=== PATIENT | male | born 1980 | race African-American/Black ===

== ENCOUNTER 2017-05-06 17:37 | Emergency (ER) | payer MEDICARE, MEDICAID ==
[2017-05-06] MEDS ORDERED: LIDOCAINE 1% INJ-PF (10 MG/ML) 30 ML SDV INJ ONE (18:19)
[2017-05-06] MEDS ORDERED: SULFAMETHOXAZOLE/TRIMETHOPRIM 800-160 MG TABLET PO ONE (18:19)
[2017-05-06] MEDS ORDERED: IBUPROFEN 600 MG TABLET PO ONE (18:19)
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
--- NOTE | 2017-05-06 18:52 | RADIOLOGY REPORT (SQ) ---
EXAM DESCRIPTION: FOOT RIGHT COMPLETE COMPLETED DATE/TIME: 05/06/2017 6:34 pm REASON FOR STUDY: foot pain COMPARISON: None. NUMBER OF VIEWS: Three views. TECHNIQUE: AP, lateral and oblique radiographic images acquired of the right foot. LIMITATIONS: None. FINDINGS: MINERALIZATION: Normal. BONES: No acute fracture or dislocation. No worrisome bone lesions. JOINTS: No effusions. SOFT TISSUES: Mild forefoot soft tissue swelling. No foreign body. OTHER: No other significant finding. IMPRESSION: Mild forefoot soft tissue swelling. No acute fracture. No radiopaque foreign body. No soft tissue gas TECHNICAL DOCUMENTATION: JOB ID: [id number] [employer]- All Rights Reserved
[2017-05-06 19:28] VITALS: BP 122/72
== END 2017-05-06 19:30 | disposition home or self-care (01) ==
LOC: ER 17:37
PROC: 0H9MXZZ Drainage of Right Foot Skin, External Approach (ICD-10-PCS; principal; 2017-05-06)
DX: L84 Corns and callosities (principal); M79.671 Pain in right foot; M79.89 Other specified soft tissue disorders
CPT/HCPCS: 99283; 73630; 10060; A9270 ×2; J3490

== ENCOUNTER 2018-03-22 23:08 | Emergency (ER) | payer MEDICARE, MEDICAID ==
[2018-03-22] MEDS ORDERED: DIPH/PERTUSS(ACELL)/TETANUS VAC/PF 0.5 ML SYR (>=10YO) IM ONE (23:58)
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
[2018-03-23 04:42] VITALS: BP 110/60
[2018-03-23] MEDS ORDERED: ONDANSETRON HCL INJ/PF 4 MG/2 ML SDV IV ONE (04:50)
[2018-03-23] MEDS ORDERED: ONDANSETRON 4 MG TAB.RAPDIS PO ONE (04:57)
[2018-03-23] MEDS ORDERED: ACETAMINOPHEN 325 MG TABLET PO ONE (05:01)
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
[2018-03-23] MEDS ORDERED: ONDANSETRON ODT 4 MG TAB (6 TAB/ER DISP) PO PRN (05:32)
[2018-03-23] MEDS ORDERED: HYDROCODONE/ACETAMINOPHEN 5-325 MG (6 TAB/ER DISP) PO PRN (05:32)
== END 2018-03-23 05:48 | disposition home or self-care (01) ==
LOC: ER 23:08
PROC: 0HQ1XZZ Repair Face Skin, External Approach (ICD-10-PCS; principal; 2018-03-22)
DX: S06.0X1A Concussion with loss of consciousness of 30 minutes or less, initial encounter (principal); R51 Headache; R11.0 Nausea; Y08.89XA Assault by other specified means, initial encounter; F17.200 Nicotine dependence, unspecified, uncomplicated
CPT/HCPCS: 99284; 90471; 73090; 73130; 70450 ×2; 72125; 90715; 12011; A9270 ×4; S0119

== ENCOUNTER 2018-05-10 14:57 | Emergency (ER) | payer MEDICARE, MEDICAID ==
[2018-05-10 15:32] VITALS: BP 124/72
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
[2018-05-10 18:05] LABS: ABSOLUTE BASOPHILS # (AUTO) 0.1 10^3/uL (0.0-0.2); ABSOLUTE EOSINOPHILS # (AUTO) 0.2 10^3/uL (0.0-0.6); ABSOLUTE LYMPHOCYTES (AUTO) 2.1 10^3/uL (0.5-4.7); ABSOLUTE NEUT (AUTO) 4.1 10^3/uL (1.7-8.2); BASOPHILS % (AUTO) 0.9 % (0-2); EOSINOPHILS % (AUTO) 2.3 % (0-6); HEMATOCRIT 47.9 % (37.9-51.0); HEMOGLOBIN 16.5 g/dL (13.5-17.0); LYMPHOCYTES % (AUTO) 28.9 % (13-45); MEAN CORPUSCULAR HEMOGLOBIN 32.8 pg (27.0-33.4); MEAN CORPUSCULAR HGB CONC 34.5 g/dL (32.0-36.0); MEAN CORPUSCULAR VOLUME 95 fl (80-97); MONOCYTES % (AUTO) 12.9 % (3-13); PLATELET COUNT 238 10^3/uL (150-450); RED BLOOD COUNT 5.05 10^6/uL (4.35-5.55); RED CELL DISTRIBUTION WIDTH 13.3 % (11.5-14.0); TOTAL CELLS COUNTED % (AUTO) 100 %; WHITE BLOOD COUNT 7.4 10^3/uL (4.0-10.5)
[2018-05-10 18:26] LABS: ALANINE AMINOTRANSFERASE 96 U/L (21-72); ALBUMIN 4.2 g/dL (3.5-5.0); ALKALINE PHOSPHATASE 77 U/L (38-126); ANION GAP 7 (5-19); ASPARTATE AMINO TRANSFERASE 49 U/L (17-59); BILIRUBIN,DIRECT 0.3 mg/dL (0.0-0.4); BILIRUBIN,TOTAL 0.4 mg/dL (0.2-1.3); BLOOD UREA NITROGEN 11 mg/dL (7-20); CALCIUM 9.5 mg/dL (8.4-10.2); CARBON DIOXIDE 31 mmol/L (22-30); CHLORIDE 108 mmol/L (98-107); GLUCOSE 136 mg/dL (75-110); POTASSIUM 4.5 mmol/L (3.6-5.0); SODIUM 145.7 mmol/L (137-145); TOTAL PROTEIN 7.6 g/dL (6.3-8.2)
--- NOTE | 2018-05-10 18:31 | RADIOLOGY REPORT (SQ) ---
EXAM DESCRIPTION: CHEST 2 VIEWS COMPLETED DATE/TIME: 05/10/2018 6:12 pm REASON FOR STUDY: cough x 2 weeks COMPARISON: 02/13/2011 EXAM PARAMETERS: NUMBER OF VIEWS: two views TECHNIQUE: Digital Frontal and Lateral radiographic views of the chest acquired. RADIATION DOSE: NA LIMITATIONS: none FINDINGS: LUNGS AND PLEURA: No opacities, masses or pneumothorax. No pleural effusion. MEDIASTINUM AND HILAR STRUCTURES: No masses or contour abnormalities. HEART AND VASCULAR STRUCTURES: Heart normal size. No evidence for failure. BONES: No acute findings. HARDWARE: None in the chest. OTHER: No other significant finding. IMPRESSION: NO ACUTE RADIOGRAPHIC FINDING IN THE CHEST. TECHNICAL DOCUMENTATION: JOB ID: [id number] [employer]- All Rights Reserved Reading location - IP/workstation name: [email or web address]
--- NOTE | 2018-05-10 18:46 | RADIOLOGY REPORT (SQ) ---
EXAM DESCRIPTION: CT HEAD WITHOUT COMPLETED DATE/TIME: 05/10/2018 6:35 pm REASON FOR STUDY: pain COMPARISON: 03/23/2018 TECHNIQUE: Axial images acquired through the brain without intravenous contrast. Images reviewed wi th bone, brain and subdural windows. Additional sagittal and coronal reconstructions were generated. Images stored on PACS. All CT scanners at this facility use dose modulation, iterative reconstruction, and/or weight based d osing when appropriate to reduce radiation dose to as low as reasonably achievable (ALARA). [facility]: Dose Right [facility]: CareDose [facility]: Dose Right [facility]: Teradose 4D [facility]: [employer] RADIATION DOSE: CT Rad equipment meets quality standard of care and radiation dose reduction techniq ues were employed. CTDIvol: 53.2 mGy. DLP: 1017 mGy-cm. mGy. LIMITATIONS: None. FINDINGS: VENTRICLES: Normal size and contour. CEREBRUM: No masses. No hemorrhage. No midline shift. No evidence for acute infarction. Normal gra y/white matter differentiation. No areas of low density in the white matter. CEREBELLUM: No masses. No hemorrhage. No alteration of density. No evidence for acute infarction. EXTRAAXIAL SPACES: No fluid collections. No masses. ORBITS AND GLOBE: No intra- or extraconal masses. Normal contour of globe without masses. CALVARIUM: No fracture. PARANASAL SINUSES: There is an air-fluid level in the right maxillary sinus. Some of the right ethmo id air cells are opacified. There is considerable opacification in the frontal sinuses. SOFT TISSUES: No mass or hematoma. OTHER: No other significant finding. IMPRESSION: Sinus disease. No acute intracranial imaging findings. EVIDENCE OF ACUTE STROKE: NO. COMMENT: Quality ID # 436: Final reports with documentation of one or more dose reduction techniques (e.g., Automated exposure control, adjustment of the mA and/or kV according to patient size, use of iterative reconstruction technique) TECHNICAL DOCUMENTATION: JOB ID: [id number] [employer]- All Rights Reserved Reading location - IP/workstation name: [email or web address]
--- NOTE | 2018-05-10 18:54 | RADIOLOGY REPORT (SQ) ---
EXAM DESCRIPTION: CT CERVICAL SPINE WITHOUT COMPLETED DATE/TIME: 05/10/2018 6:35 pm REASON FOR STUDY: pain COMPARISON: 03/23/2018 TECHNIQUE: Axial images acquired through the cervical spine without intravenous contrast. Images re viewed with lung, soft tissue and bone windows. Reconstructed coronal and sagittal MPR images review ed. Images stored on PACS. All CT scanners at this facility use dose modulation, iterative reconstruction, and/or weight based d osing when appropriate to reduce radiation dose to as low as reasonably achievable (ALARA). [facility]: Dose Right [facility]: CareDose [facility]: Dose Right [facility]: Teradose 4D [facility]: [employer] RADIATION DOSE: CT Rad equipment meets quality standard of care and radiation dose reduction techniq ues were employed. CTDIvol: 24.5 mGy. DLP: 512 mGy-cm. mGy. LIMITATIONS: None. FINDINGS: ALIGNMENT: Anatomic. MINERALIZATION: Normal. VERTEBRAL BODIES: No fractures or dislocation. DISCS: There is narrowing of the C6-7 disc space with marginal osteophytes. FACETS, LATERAL MASSES, POSTERIOR ELEMENTS: No fractures. No dislocation. No acute findings. HARDWARE: None in the spine. VISUALIZED RIBS: No fractures. LUNG APICES AND SOFT TISSUES: No significant or acute findings. OTHER: No other significant finding. IMPRESSION: Degenerative disc disease and spondylosis at C6-7. No acute finding. TECHNICAL DOCUMENTATION: JOB ID: [id number] Quality ID # [id number]: Final reports with documentation of one or more dose reduction techniques (e.g., Au tomated exposure control, adjustment of the mA and/or kV according to patient size, use of iterative reconstruction technique) 2010 [email or web address]- All Rights Reserved Reading location - IP/workstation name: [email or web address]
[2018-05-10] MEDS ORDERED: DEXAMETHASONE 4 MG TABLET PO ONE (19:17)
[2018-05-10] MEDS ORDERED: ALBUTEROL SULFATE HFA (90 MCG/PUFF) 200 PUFF/8.5 GM MDI IH ONE (19:18)
--- NOTE | 2018-05-10 19:20 | ER Document Report ---
ED General - General Chief Complaint: Fainting Stated Complaint: FALL/FLU LIKE SYMPTOMS Time Seen by Provider: 05/10/18 17:29 Primary Care Provider: RADHA ELI MD [Primary Care Provider] - Follow up as needed Notes: Patient is a 37-year-old male with a past medical history of PTSD, anxiety, presents after having a syncopal episode that occurred after an episode of vigorous coughing. The patient reports that for the past 2 weeks he has had a persistent, daily cough. States that sometimes he coughs so forcefully that he feels nauseated or lightheaded. Tonight he had an episode lasting was 1 minute in which he coughed very forcefully, states he then became lightheaded and apparently passed out. He apparently fell and struck his head and neck. Upon waking up after 30 seconds of unconsciousness he apparently complained of a throbbing aching bifrontal headache. States that headaches mostly resolved at the time of my assessment. Denies a history of previous syncopal episodes in the past. Does arrive by EMS. Notes that his symptoms have improved independent of any therapy. Nothing has worsened his symptoms since onset. TRAVEL OUTSIDE OF THE [place] IN LAST 30 DAYS: No - Related Data Allergies/Adverse Reactions: No Known Allergies Allergy (Verified 05/10/18 15:00) Past Medical History - General Information source: Patient - Social History Smoking Status: Current Every Day Smoker Frequency of alcohol use: None Drug Abuse: None Lives with: Family Family History: None, Reviewed & Not Pertinent Patient has suicidal ideation: No Patient has homicidal ideation: No Neurological Medical History: Reports: Hx Seizures Renal/ Medical History: Denies: Hx Peritoneal Dialysis Musculoskeletal Medical History: Reports Hx Musculoskeletal Trauma Psychiatric Medical History: Reports: Hx Bipolar Disorder, Hx Depression Traumatic Medical History: Reports: Hx Traumatic Brain Injury Past Surgical History: Reports: Hx Orthopedic Surgery - back - Immunizations Hx Diphtheria, Pertussis, Tetanus Vaccination: Yes Review of Systems - Review of Systems Notes: Constitutional: Negative for fever. HENT: Negative for sore throat. Eyes: Negative for visual changes. Cardiovascular: Negative for chest pain. Respiratory: Positive for cough Gastrointestinal: Negative for abdominal pain, vomiting or diarrhea. Genitourinary: Negative for dysuria. Musculoskeletal: Negative for back pain. Skin: Negative for rash. Neurological: Positive for headache 10 point ROS negative except as marked above and in HPI. Physical Exam - Vital signs Vitals: Temp Pulse Resp BP Pulse Ox 98.5 F 107 H 20 124/72 93 05/10/18 15:30 05/10/18 15:30 05/10/18 15:30 05/10/18 15:30 05/10/18 15:30 Interpretation: Tachycardic - Heart rate is normalized at the time of my assessment with a heart rate of 82 Notes: PHYSICAL EXAMINATION: GENERAL: Well-appearing, no acute distress. HEAD: Atraumatic, normocephalic. EYES: Pupils equal round and reactive to light, extraocular movements intact, sclera anicteric, conjunctiva are normal. ENT: nares patent, no oral pharyngeal trauma. No hemotympanum, no Ott's sign, no raccoon eyes. NECK: No midline cervical spine tenderness. Patient able to move their head to 45 bilaterally without any discomfort. LUNGS: Breath sounds clear to auscultation bilaterally and equal. No wheezes rales or rhonchi. HEART: Regular rate and rhythm without murmurs. CHEST WALL: No ecchymosis over the chest wall. ABDOMEN: Soft, nontender, normoactive bowel sounds. No guarding, no rebound. No abdominal bruising EXTREMITIES: Normal range of motion, no pitting or edema. No long bone deformities. BACK: No midline spinal tenderness, step-offs, or deformities. NEUROLOGICAL: Face symmetric. Tongue protrudes midline. Extraocular motions intact. Pupils are 2 mm and equally reactive. Normal speech, normal gait. 5 out of 5 strength in both the distal and proximal upper and lower extremities bilaterally. Sensation is grossly intact throughout. Finger to nose testing normal. Pronator drift normal. PSYCH: Normal mood, normal affect. SKIN: Warm, Dry, normal turgor, no rashes or lesions noted. Course - Re-evaluation Re-evalutation: 05/10/18 19:19 Presentation of syncope likely vasovagal in origin after the patient had a persistent coughing fit. Patient normotensive, alert, without focal neurologic deficits at time of arrival. Denies syncope was during exertion. No preceding symptoms of palpitations, chest pain, or shortness of breath. Patient asymptomatic at time of arrival. EKG is without evidence of HCOM, right heart strain, ST changes to suggest ischemia, prolong QTc, delta wave, epsilon wave, or Brugada syndrome. Patient denies any family history of sudden cardiac , personal history of of structural heart disease. Patient denies any symptoms to suggest an acute PE, MD, TAD, SAH, seizure, or acute GI bleed as the etiology of their syncope today. On exam, no murmurs to suggest critical aortic stenosis as possible etiology. Patient did strike his head and neck during the episode and a CT of the head and cervical spine were obtained in triage and are noted to be unremarkable. In regards to the patient's persistent cough: clinical history and exam most consistent with an acute viral bronchitis. Patient is overall well in appearance without tachypnea, hypoxemia, tachycardia, or difficulty with ambulation. Breath sounds are clear bilaterally. No fever. Patient does have additional signs of upper respiratory infection including nasal congestion, sore throat, and sinus pressure. Chest x-ray without any evidence of an acute infiltrate. Will treat with bronchodilators, single dose of dexamethasone, and Tessalon Perles. At this time will discharge with return precautions and follow-up recommendations. Verbal discharge instructions given a the bedside and opportunity for questions given. Medication warnings reviewed. Patient is in agreement with this plan and has verbalized understanding of return precautions and the need for primary care follow-up in the next 24-72 hours. - Vital Signs Vital signs: Temp Pulse Resp BP Pulse Ox 98.5 F 107 H 20 124/72 93 05/10/18 15:30 05/10/18 15:30 05/10/18 15:30 05/10/18 15:30 05/10/18 15:30 - Laboratory Result Diagrams: 05/10/18 17:51 05/10/18 17:51 Laboratory results interpreted by me: 05/10/18 17:51 Sodium 145.7 H Chloride 108 H Carbon Dioxide 31 H Glucose 136 H ALT 96 H - Diagnostic Test Radiology reviewed: Image reviewed, Reports reviewed Radiology results interpreted by nj: 05/10/18 19:20 Chest x-ray: No acute infiltrate or pneumothorax CT head: No acute intercranial bleed or mass Discharge - Discharge Clinical Impression: Persistent cough Syncope Qualifiers: Syncope type: unspecified Qualified Code(s): R55 - Syncope and collapse Head trauma Qualifiers: Encounter type: initial encounter Qualified Code(s): S09.90XA - Unspecified injury of head, initial encounter Acute bronchitis Qualifiers: Bronchitis organism: unspecified organism Qualified Code(s): J20.9 - Acute bronchitis, unspecified Condition: Good Disposition: HOME, SELF-CARE Additional Instructions: You were seen for symptoms most consistent with bronchitis. This can take up to 12 weeks to fully resolve. This is generally due to a viral infection. Please follow-up with your primary doctor in the next 2-3 days. Return if you develop worsening cough, vomiting, fever >100.4, pass out, begin coughing blood, or have any other symptoms that are concerning to you. Please use the medications prescribed today as directed. You were seen today after an episode of passing out. Your EKG here is normal. At this time, we do not feel that your episode of passing out was from any life- threatening cause. Please drink plenty of fluids over the next several days. Return to emergency department if you have any further episodes of syncope, headache, weakness, numbness, chest pain, or shortness of breath. Please follow up closely with your primary care physician. You have likely sustained a contusion (bruise) to your head. If you had a CT scan done, it did not show any evidence of serious injury or bleeding. Symptoms to expect from a concussion include nausea, mild to moderate headache, difficulty concentrating or sleeping, and mild lightheadedness. These symptoms should improve over the next few days to weeks. Return to the emergency department or follow-up with your primary care doctor if your symptoms are not improving over this time. Signs of a more serious head injury include vomiting, severe headache, excessive sleepiness or confusion, and weakness or numbness in your face, arms or legs. Return immediately to the Emergency Department if you experience any of these more concerning symptoms. Rest, avoid strenuous physical or mental activity, and avoid activities that could potentially result in another head injury until all your symptoms from this head injury are completely resolved for at least 2-3 weeks. If you participate in sports, get cleared by your doctor or regional sales trainer before returning to play. You may take ibuprofen or acetaminophen over the counter according to label instructions for mild headache or scalp soreness. Prescriptions: Benzonatate [Tessalon Perles 100 mg Capsule] 100 mg PO Q8HP PRN #40 capsule PRN Reason: Referrals: RADHA ELI MD [Primary Care Provider] - Follow up as needed
--- NOTE | 2018-05-10 22:57 | EKG REPORT ---
SEVERITY:- NORMAL ECG - SINUS RHYTHM : Confirmed by: Elva Childs MD 10-May-2018 22:57:18
== END 2018-05-10 20:02 | disposition home or self-care (01) ==
LOC: ER 14:57
DX: R55 Syncope and collapse (principal); S09.90XA Unspecified injury of head, initial encounter; J20.9 Acute bronchitis, unspecified; X58.XXXA Exposure to other specified factors, initial encounter; F43.10 Post-traumatic stress disorder, unspecified; F41.9 Anxiety disorder, unspecified; F17.200 Nicotine dependence, unspecified, uncomplicated
CPT/HCPCS: 93005; 99284; 36415; 85025; 80053; 84484; 71046; 70450; 72125; 93010; A9270; J3490

== ENCOUNTER 2018-08-21 19:41 | Observation (INO) | payer MEDICARE, MEDICAID ==
[2018-08-21] MEDS ORDERED: ONDANSETRON HCL INJ/PF 4 MG/2 ML SDV IV ONE (23:09)
[2018-08-21] MEDS ORDERED: MORPHINE SULFATE 10 MG/ML INJ IV ONE (23:09)
--- NOTE | 2018-08-21 23:11 | ER Document Report ---
ED Extremity Problem, Upper - General Chief Complaint: Arm Problem Stated Complaint: SPIDER BITE Time Seen by Provider: 08/21/18 22:45 Notes: Patient is a 37-year-old male that comes emergency department for chief complaint of left arm pain and swelling. He states last night he could not sleep because of the pain, he states today it "busted open", large amount of purulent drainage came out of the opening at the base of the bicep in the curve of the elbow. He states earlier he felt like he was running a fever and was sweating as well. He denies ever using IV drugs or any recreational drugs except marijuana, he reports his tetanus is up-to-date, he denies any medical history except chronic back pain on gabapentin. TRAVEL OUTSIDE OF THE [place] IN LAST 30 DAYS: No - Related Data Allergies/Adverse Reactions: No Known Allergies Allergy (Verified 05/10/18 15:00) Past Medical History - General Information source: Patient - Social History Smoking Status: Never Smoker Frequency of alcohol use: None Drug Abuse: None Lives with: Family Family History: None, Reviewed & Not Pertinent Neurological Medical History: Reports: Hx Seizures Renal/ Medical History: Denies: Hx Peritoneal Dialysis Musculoskeletal Medical History: Reports Hx Musculoskeletal Trauma Psychiatric Medical History: Reports: Hx Bipolar Disorder, Hx Depression Traumatic Medical History: Reports: Hx Traumatic Brain Injury Past Surgical History: Reports: Hx Orthopedic Surgery - back - Immunizations Hx Diphtheria, Pertussis, Tetanus Vaccination: Yes Review of Systems - Review of Systems Constitutional: No symptoms reported EENT: No symptoms reported Cardiovascular: No symptoms reported Respiratory: No symptoms reported Gastrointestinal: No symptoms reported Genitourinary: No symptoms reported Male Genitourinary: No symptoms reported Musculoskeletal: See HPI Skin: See HPI Hematologic/Lymphatic: No symptoms reported Neurological/Psychological: No symptoms reported Physical Exam - Vital signs Vitals: Temp Pulse Resp BP Pulse Ox 99.0 F 85 18 137/73 H 97 08/21/18 20:15 08/21/18 20:15 08/21/18 20:15 08/21/18 20:15 08/21/18 20:15 - Notes Notes: GENERAL: Alert, interacts well. HEAD: Normocephalic, atraumatic. EYES: Pupils equal, round, and reactive to light. Extraocular movements intact. ENT: Oral mucosa moist, tongue midline. Oropharynx unremarkable. Airway patent. NECK: Full range of motion. Supple. Trachea midline. LUNGS: Clear to auscultation bilaterally, no wheezes, rales, or rhonchi. No respiratory distress. HEART: Regular rate and rhythm. No murmur ABDOMEN: Soft, non-tender. Non-distended. Bowel sounds present in all 4 quadrants. GENITOURINARY: Deferred EXTREMITIES: Left upper extremity showing swelling at the bicep with redness and tenderness, tenderness extends down to the base of the bicep near the antecubital area, at this area there is a large hole in the arm with current purulent drainage being expressed. Patient cannot extend his arm at the elbow. There is no tenderness over the elbow or swelling of the elbow. Normal distal strength, cap refill, sensation. Normal extremity exams otherwise. BACK: no cervical, thoracic, lumbar midline tenderness. No saddle anesthesia, normal distal neurovascular exam. NEUROLOGICAL: Alert and oriented x3. Normal speech. PSYCH: Normal affect, normal mood. SKIN: Warm, dry, normal turgor. No rashes or lesions noted. Course - Re-evaluation Re-evalutation: Patient's physical examination is very concerning and impressive. If there is a large swollen area to the left bicep with surrounding redness, this extends down to a large deep opening at the base of the bicep which is draining copious amounts of purulent material. Every time patient tries to move his arm more material is expressed. Patient cannot fully extend his arm because of this. The elbow joint itself seems to be uninvolved. Patient does deny IV drug abuse. He does not have a fever here but he states he had a fever with sweating earlie r today. No leukocytosis, chemistry unremarkable, CAT scan very limited and does not show obvious abnormality. However despite this because of his very concerning presentation patient will be discussed with surgeon online activist. 08/22/18 02:[address] Molina, general surgeon, he states he recommends patient be accepted to his service for probable OR washout later today. I discussed this with patient, patient states understanding and agreement with this plan. - Vital Signs Vital signs: Temp Pulse Resp BP Pulse Ox 97.8 F 69 18 101/64 97 08/22/18 03:01 08/22/18 03:01 08/22/18 03:01 08/22/18 03:01 08/22/18 03:01 - Laboratory Result Diagrams: 08/22/18 00:20 08/22/18 00:20 Laboratory results interpreted by me: 08/22/18 08/22/18 00:20 00:20 Monocytes % 13.2 H Chloride 108 H BUN 22 H Discharge - Discharge Clinical Impression: Left arm swelling, Arm abscess Condition: Stable Disposition: ADMITTED OBSERVATION Admitting Provider: Surgicalist Unit Admitted: Surgical Floor
[2018-08-22 00:34] LABS: ABSOLUTE BASOPHILS # (AUTO) 0.1 10^3/uL (0.0-0.2); ABSOLUTE EOSINOPHILS # (AUTO) 0.1 10^3/uL (0.0-0.6); ABSOLUTE LYMPHOCYTES (AUTO) 1.6 10^3/uL (0.5-4.7); ABSOLUTE MONOCYTES (AUTO) 1.1 10^3/uL (0.1-1.4); ABSOLUTE NEUT (AUTO) 5.3 10^3/uL (1.7-8.2); BASOPHILS % (AUTO) 0.7 % (0-2); EOSINOPHILS % (AUTO) 1.1 % (0-6); HEMATOCRIT 45.1 % (37.9-51.0); HEMOGLOBIN 15.4 g/dL (13.5-17.0); LYMPHOCYTES % (AUTO) 19.8 % (13-45); MEAN CORPUSCULAR HEMOGLOBIN 31.9 pg (27.0-33.4); MEAN CORPUSCULAR HGB CONC 34.2 g/dL (32.0-36.0); MEAN CORPUSCULAR VOLUME 93 fl (80-97); MONOCYTES % (AUTO) 13.2 % (3-13); PLATELET COUNT 233 10^3/uL (150-450); RED BLOOD COUNT 4.83 10^6/uL (4.35-5.55); RED CELL DISTRIBUTION WIDTH 12.8 % (11.5-14.0); SEGMENTED NEUTROPHILS % (AUTO) 65.2 % (42-78); TOTAL CELLS COUNTED % (AUTO) 100 %; WHITE BLOOD COUNT 8.1 10^3/uL (4.0-10.5)
[2018-08-22 00:53] LABS: ANION GAP 13 (5-19); BLOOD UREA NITROGEN 22 mg/dL (7-20); CALCIUM 9.5 mg/dL (8.4-10.2); CARBON DIOXIDE 24 mmol/L (22-30); CHLORIDE 108 mmol/L (98-107); GLUCOSE 91 mg/dL (75-110); POTASSIUM 4.4 mmol/L (3.6-5.0); SODIUM 144.9 mmol/L (137-145)
--- NOTE | 2018-08-22 01:30 | RADIOLOGY REPORT (SQ) ---
EXAM DESCRIPTION: CT UPPER EXTREMITY WITH IV CONTRAST COMPLETED DATE/TME: 08/22/2018 00:00 CLINICAL HISTORY: Pain. 37 years Male, swollen left arm, eval infection L ELBOW COMPARISON: None. Technique: IV contrast. Coronal and sagittal reformat. This exam was performed according to our departmental dose-optimization program, which includes automated exposure control, adjustment of the mA and/or kV according to patient size and/or use of iterative reconstruction technique. [facility]: Dose Right [facility]: CareDose [facility]: Dose Right [facility]: Teradose 4D [facility]: [employer] LIMITATIONS: Soft tissues at the posterior lateral aspect of the left elbow are clipped off imaging field. Streak artifact. Findings: Soft tissues at the posterior lateral aspect of the left elbow are clipped off imaging field. Streak artifact. Bones, joints, and soft tissues of the CT LEFT elbow WITH IV CONTRAST appear otherwise unremarkable. IMPRESSION: No acute findings. Significant limitations as described. Consider repeat or surveillance examination as warranted.
[2018-08-22] MEDS ORDERED: VANCOMYCIN HCL INJ 1000 MG VIAL IV ONE (01:50)
[2018-08-22] MEDS ORDERED: CEFTRIAXONE 1 GM/D5W RTU 1 GM/50 ML RTUPB IV ONE (01:51)
[2018-08-22] MEDS ORDERED: MORPHINE SULFATE 10 MG/ML INJ IV PRN ×3 (02:12→12:00)
[2018-08-22] MEDS ORDERED: ONDANSETRON HCL INJ/PF 4 MG/2 ML SDV IV PRN (02:12)
[2018-08-22] MEDS ORDERED: DEXTROSE 5%-LACTATED RINGERS 1,000 ML IV PRN (02:12)
[2018-08-22] MEDS ORDERED: VANCOMYCIN HCL 0 MG in DEXTROSE 5%-WATER 250 ML IV NR (02:15)
[2018-08-22] MEDS ORDERED: VANCOMYCIN HCL INJ 1000 MG VIAL IV PRN (02:22)
[2018-08-22] MEDS ORDERED: PIPERACILLIN/TAZOBACTAM 3.375 GM VIAL IV PRN (02:22)
[2018-08-22] MEDS: PIPERACILLIN SODIUM/TAZOBACTAM 3.375 GM in NORMAL SALINE 100 ML IV SCH ×4 (02:52→20:16)
[2018-08-22] MEDS ORDERED: VANCOMYCIN HCL 2,000 MG in DEXTROSE 5%-WATER 500 ML IV ONE (04:00)
[2018-08-22 06:21] LABS: URINE AMPHETAMINES SCREEN NEGATIVE; URINE BARBITURATES SCREEN NEGATIVE; URINE BENZODIAZEPINES SCREEN NEGATIVE; URINE COCAINE SCREEN NEGATIVE; URINE METHADONE SCREEN NEGATIVE; URINE PHENCYCLIDINE SCREEN NEGATIVE
[2018-08-22 06:27] LABS: URINE MARIJUANA (THC) SCREEN UNCONFIRMED POSITIVE
--- NOTE | 2018-08-22 07:22 | PDOC H&P ---
History of Present Illness Admission Date/PCP: 08/22/18 02:13 RADHA ELI MD Patient complains of: Left upper extremity swelling, pain, and drainage. History of Present Illness: MARCO CHRISTENSEN is a 37 year old male with a 4-day history of swelling in the left lower biceps. He reports that the skin broke open and pus began draining from it. The patient denies any history of trauma or IV drug abuse. The patient has experienced fevers and chills, as well as malaise. Patient's pain is a 6 out of 10. It is dull and throbbing. It does not radiate. Palpation makes his pain worse, nothing makes it better. Patient denies chest pain, shortness of breath, nausea, vomiting, headache, dizziness, blurry vision, orthostasis, fatigue. Past Medical History Neurological Medical History: Reports: Seizures Psychiatric Medical History: Reports: Bipolar Disorder, Depression Traumatic Medical History: Reports: Traumatic Brain Injury Past Surgical History Past Surgical History: Reports: Orthopedic Surgery - back Social History Lives with: Family Smoking Status: Current Every Day Smoker Cigarettes Packs Per Day: 1 Frequency of Alcohol Use: Occasional Drugs: Marijuana Family History Family History: None, Reviewed & Not Pertinent Parental Family History Reviewed: Yes Children Family History Reviewed: Yes Sibling(s) Family History Reviewed.: Yes Medication/Allergy Home Medications: Bupropion HCl [Wellbutrin Sr 150 mg Tablet] 150 mg PO BID 11/29/11 Cyclobenzaprine HCl [Flexeril 10 Mg Tablet] 10 mg PO BID 11/29/11 Furosemide [Lasix 20 mg Tablet] 20 mg PO QAM 11/29/11 Dicyclomine HCl [Bentyl 20 mg Tablet] 20 mg PO QID #40 tablet 05/14/12 Ondansetron [Zofran Odt 4 mg Tablet] 1 - 2 tab PO Q4H #10 tab.rapdis 05/14/12 Cyclobenzaprine HCl [Flexeril 10 mg Tablet] 10 mg PO TIDP PRN #15 tab 07/15/14 Oxycodone HCl/Acetaminophen [Percocet 5-325 mg Tablet] 1 - 2 tab PO Q4H PRN #15 tablet 07/15/14 Methocarbamol [Robaxin 500 mg Tablet] 500 mg PO TID #20 tablet 08/09/14 Tramadol HCl [Ultram] 50 mg PO ASDIR PRN #20 tablet 08/09/14 Hydrocodone/Acetaminophen [Lorcet Hd 10-325 mg Tablet] 1 each PO Q4 PRN #20 tablet 01/06/15 Albuterol Sulfate [Proair HFA Inhalation Aerosol 8.5 gm MDI] 2 puff IH Q4H PRN #1 mdi 01/09/15 Metaxalone [Skelaxin] 800 mg PO ASDIR PRN #30 tablet 01/09/15 Oxycodone HCl/Acetaminophen [Percocet 10-325 Mg Tablet] 1 each PO Q6 #25 tablet 01/09/15 Sulfamethoxazole/Trimethoprim [Bactrim Ds Tablet] 1 each PO BID #10 tablet 05/06/17 Tramadol HCl [Ultram 50 mg Tablet] 50 mg PO Q6HP PRN #10 tablet 05/06/17 Benzonatate [Tessalon Perles 100 mg Capsule] 100 mg PO Q8HP PRN #40 capsule 05/10/18 Allergies/Adverse Reactions: No Known Allergies Allergy (Verified 05/10/18 15:00) Review of Systems Constitutional: PRESENT: chills, fatigue, fever(s). ABSENT: anorexia, headache(s), weakness Eyes: ABSENT: visual disturbances Ears: ABSENT: hearing changes Nose, Mouth, and Throat: ABSENT: sore throat Cardiovascular: ABSENT: chest pain Respiratory: ABSENT: cough Gastrointestinal: ABSENT: abdominal pain, constipation, melena, nausea, vomiting Integumentary: PRESENT: wounds - Left upper extremity. ABSENT: pruritus, rash Neurological: ABSENT: confusion, convulsions, dizziness Psychiatric: ABSENT: anxiety, depression Hematologic/Lymphatic: ABSENT: easy bleeding, easy bruising Physical Exam Vital Signs: Temp Pulse Resp BP Pulse Ox 97.4 F 73 16 112/70 93 08/22/18 05:05 08/22/18 05:05 08/22/18 05:05 08/22/18 05:05 08/22/18 05:05 Intake & Output 08/21/18 08/22/18 08/23/18 06:59 06:59 06:59 Intake Total 650 Balance 650 Weight 104.9 kg General appearance: PRESENT: no acute distress, cooperative Head exam: PRESENT: atraumatic, normocephalic Eye exam: PRESENT: EOMI, PERRLA. ABSENT: scleral icterus Mouth exam: PRESENT: moist, neck supple Teeth exam: ABSENT: poor dentation Neck exam: ABSENT: meningismus, tenderness, thyromegaly, tracheal deviation Respiratory exam: PRESENT: clear to auscultation yasmin, unlabored. ABSENT: chest wall tenderness, tachypnea, wheezes Cardiovascular exam: PRESENT: RRR Pulses: PRESENT: normal radial pulses Vascular exam: PRESENT: normal capillary refill. ABSENT: pallor GI/Abdominal exam: PRESENT: soft. ABSENT: distended, firm, rigid, tenderness Rectal exam: PRESENT: deferred Extremities exam: PRESENT: other - Open wound to the left antecubital fossa, medially. There is purulent material emanating from the wound. There is a large amount of induration in the subcutaneous tissue of the inferior biceps. There is tenderness to palpation. Neurological exam: PRESENT: alert, awake, oriented to person, oriented to place, oriented to time, oriented to situation, CN II-XII grossly intact Psychiatric exam: ABSENT: agitated, anxious, depressed Focused psych exam: ABSENT: delusional Skin exam: PRESENT: erythema - Left upper extremity. ABSENT: cyanosis, jaundice Results Laboratory Results: 08/22/18 00:20 08/22/18 00:20 08/22/18 08/22/18 00:20 00:20 WBC 8.1 RBC 4.83 Hgb 15.4 Hct 45.1 MCV 93 MCH 31.9 MCHC 34.2 RDW 12.8 Plt Count 233 Seg Neutrophils % 65.2 Lymphocytes % 19.8 Monocytes % 13.2 H Eosinophils % 1.1 Basophils % 0.7 Absolute Neutrophils 5.3 Absolute Lymphocytes 1.6 Absolute Monocytes 1.1 Absolute Eosinophils 0.1 Absolute Basophils 0.1 Sodium 144.9 Potassium 4.4 Chloride 108 H Carbon Dioxide 24 Anion Gap 13 BUN 22 H Creatinine 0.92 Est GFR ( Amer) > 60 Est GFR (Non-Af Amer) > 60 Glucose 91 Calcium 9.5 Impressions: Upper Extremity CT 08/22/18 00:00 IMPRESSION: No acute findings. Significant limitations as described. Consider repeat or surveillance examination as warranted. Assessment & Plan - Diagnosis (1) Arm abscess Is this a current diagnosis for this admission?: Yes - Plan Summary Plan Summary: This is a 37-year-old male with a large abscess to the left upper extremity. I am unsure the etiology of this abscess, however he is draining purulent material and has a large amount of induration. The patient will require operative intervention in order to resolve his infection. This has been discussed with the patient at length. Risks/benefits discussed, informed consent obtained, and all questions answered.
[2018-08-22] MEDS ORDERED: FENTANYL CITRATE INJ/PF 100 MCG/2 ML AMPUL ONE ×2 (08:12→09:00)
[2018-08-22] MEDS ORDERED: MIDAZOLAM 2 MG/2 ML INJ ONE ×2 (08:12→09:00)
[2018-08-22] MEDS ORDERED: PROPOFOL INJ 200 MG/20 ML VIAL IV ONE ×2 (08:13→09:00)
[2018-08-22] MEDS ORDERED: LIDOCAINE 0.5% INJ-PF (5 MG/ML) 50 ML SDV ONE (09:12)
[2018-08-22] MEDS ORDERED: FENTANYL CITRATE INJ/PF 100 MCG/2 ML AMPUL IV PRN ×3 (09:55)
[2018-08-22] MEDS ORDERED: DIPHENHYDRAMINE HCL 50 MG/ML VIAL IV PRN (09:55)
[2018-08-22] MEDS ORDERED: PROMETHAZINE HCL INJ 25 MG/1 ML VIAL IV PRN ×2 (09:55)
[2018-08-22] MEDS ORDERED: OXYCODONE-ACETAMINOPHEN 5-325 MG TABLET PO PRN ×2 (09:55)
[2018-08-22] MEDS ORDERED: MEPERIDINE HCL/PF INJ 25 MG/1 ML DISP.SYRIN IV PRN (09:55)
[2018-08-22] MEDS: FENTANYL CITRATE INJ/PF 100 MCG/2 ML AMPUL ONE ×2 (10:10→10:15)
[2018-08-22] MEDS ORDERED: KETOROLAC TROMETHAMINE INJ/PF 30 MG/1 ML SDV ONE (10:31)
[2018-08-22] MEDS: OXYCODONE-ACETAMINOPHEN 5-325 MG TABLET ONE ×2 (10:42→11:56)
--- NOTE | 2018-08-22 10:44 | OPERATIVE REPORT E ---
Operative Report NAME: MARCO CHRISTENSEN : 1980 AGE: 37Y DATE OF SURGERY: 08/22/2018 ROOM: 413 PREOPERATIVE DIAGNOSIS: Abscess in left cubital area. POSTOPERATIVE DIAGNOSIS: Deep abscess of left cubital area extending underneath the left brachial muscle proximally PROCEDURE: Incision and drainage of deep cubital abscess extending underneath the left brachial muscle to a distance of about 6 cm.proximally SURGEON: CHAPIN CHAPPELL M.D. ANESTHESIA: General. INDICATIONS: This is a 37-year-old male noted to have pains in the cubital area and initial attempt at I and D in the ED. However, noted to be deeper and therefore I and D was aborted to have a formal I and D in the OR. DESCRIPTION OF PROCEDURE: After adequate general anesthesia, the left arm was then extended and subsequently prepped and draped in the usual sterile fashion. The left arm cubital area had a previous I and D and squeezing the area around it I was able to obtain some purulent material. Cultures of this material was obtained. Next, digital probing of the cubital area noted the abscess extending underneath the brachial tendon and muscle going proximally to about 6 cm. A counterincision made around this area on the lateral side of the arm was then made. The abscess cavity was then further probed down to the abscess cavity site. However, abscess cavity appears to be not extending further proximally or going towards the subcutaneous area. Next, another counterincision was then made distally this time to about 1.5 cm from the original I and D site. A small amount of abscess was noted in this area and noted to be subcu. Following this, pulse lavage of the I and D sites was then performed. Next, the abscess cavity sites were then packed with a whole bottle of 0.25-inch Iodoform gauze. Sterile 4 x 4 and Kerlix and 4-inch Geo bandage were then used to dress the wound. The patient tolerated the procedure well. Needle, instrument, and sponge counts were all correct. Estimated blood loss about 30 mL. DICTATING PHYSICIAN: CHAPIN CHAPPELL M.D. [id number] PHY#: [id number] ID: [id number] JOB#: [id number] ACCT: [id number] cc:CHAPIN CHAPPLEL M.D. > MTDD
[2018-08-22] MEDS: VANCOMYCIN HCL 1,000 MG in DEXTROSE 5%-WATER 250 ML IV SCH ×2 (12:20→17:09)
[2018-08-22] MEDS: KETOROLAC TROMETHAMINE INJ/PF 30 MG/1 ML SDV IV SCH ×3 (12:37→23:04)
[2018-08-22] MEDS: OXYCODONE-ACETAMINOPHEN 5-325 MG TABLET PO PRN (20:15)
[2018-08-22] MEDS ORDERED: NICOTINE 21 MG/24 HR PATCH.TD24 TD PRN (20:30)
[2018-08-23] MEDS: VANCOMYCIN HCL 1,000 MG in DEXTROSE 5%-WATER 250 ML IV SCH ×3 (02:26→17:13)
[2018-08-23] MEDS: PIPERACILLIN SODIUM/TAZOBACTAM 3.375 GM in NORMAL SALINE 100 ML IV SCH ×4 (03:59→20:08)
[2018-08-23] MEDS: KETOROLAC TROMETHAMINE INJ/PF 30 MG/1 ML SDV IV SCH ×4 (05:53→23:59)
[2018-08-23 09:56] LABS: ANION GAP 6 (5-19); BLOOD UREA NITROGEN 15 mg/dL (7-20); CALCIUM 8.9 mg/dL (8.4-10.2); CARBON DIOXIDE 28 mmol/L (22-30); CHLORIDE 106 mmol/L (98-107); GLUCOSE 109 mg/dL (75-110); POTASSIUM 3.8 mmol/L (3.6-5.0); SODIUM 140.4 mmol/L (137-145)
[2018-08-23 10:59] LABS: VANCOMYCIN,TROUGH 17.3 ug/mL (5.0-20.0)
[2018-08-23 12:05] LABS: ABSOLUTE EOSINOPHILS # (AUTO) 0.1 10^3/uL (0.0-0.6); ABSOLUTE LYMPHOCYTES (AUTO) 1.3 10^3/uL (0.5-4.7); ABSOLUTE MONOCYTES (AUTO) 1.3 10^3/uL (0.1-1.4); ABSOLUTE NEUT (AUTO) 5.3 10^3/uL (1.7-8.2); BASOPHILS % (AUTO) 0.5 % (0-2); HEMOGLOBIN 14.4 g/dL (13.5-17.0); LYMPHOCYTES % (AUTO) 16.4 % (13-45); MEAN CORPUSCULAR HEMOGLOBIN 31.2 pg (27.0-33.4); MEAN CORPUSCULAR HGB CONC 33.5 g/dL (32.0-36.0); MEAN CORPUSCULAR VOLUME 93 fl (80-97); MONOCYTES % (AUTO) 15.9 % (3-13); PLATELET COUNT 250 10^3/uL (150-450); RED BLOOD COUNT 4.62 10^6/uL (4.35-5.55); RED CELL DISTRIBUTION WIDTH 12.7 % (11.5-14.0); SEGMENTED NEUTROPHILS % (AUTO) 66.2 % (42-78); TOTAL CELLS COUNTED % (AUTO) 100 %; WHITE BLOOD COUNT 8.1 10^3/uL (4.0-10.5)
--- NOTE | 2018-08-23 19:31 | PDOC PROGRESS REPORT ---
Subjective Progress Note for:: 08/23/18 Subjective:: pains left arm Reason For Visit: ARM ABSCESS Physical Exam Vital Signs: Temp Pulse Resp BP Pulse Ox 98.3 F 87 18 134/77 H 97 08/23/18 15:00 08/23/18 15:00 08/23/18 15:00 08/23/18 15:00 08/23/18 15:00 Intake & Output 08/22/18 08/23/18 08/24/18 06:59 06:59 06:59 Intake Total 650 6250 1468 Output Total 5 Balance 650 6245 1468 Weight 104.9 kg 104.9 kg Exam: Packing removed. Still with swelling and tenderness left arm around cubital area. Culture G+ cocci in clusters. Await sensitivity results but most likely staph aureus Results Laboratory Results: 08/23/18 09:08 08/23/18 09:08 08/23/18 08/23/18 08/23/18 06:15 06:15 09:08 WBC RBC Hgb Hct MCV MCH MCHC RDW Plt Count Seg Neutrophils % Lymphocytes % Monocytes % Eosinophils % Basophils % Absolute Neutrophils Absolute Lymphocytes Absolute Monocytes Absolute Eosinophils Absolute Basophils Sodium Cancelled 140.4 Potassium Cancelled 3.8 Chloride Cancelled 106 Carbon Dioxide Cancelled 28 Anion Gap Cancelled 6 BUN Cancelled 15 Creatinine Cancelled 1.02 Est GFR ( Amer) Cancelled > 60 Est GFR (Non-Af Amer) Cancelled > 60 Glucose Cancelled 109 Calcium Cancelled 8.9 08/23/18 09:08 WBC 8.1 RBC 4.62 Hgb 14.4 Hct 43.0 MCV 93 MCH 31.2 MCHC 33.5 RDW 12.7 Plt Count 250 Seg Neutrophils % 66.2 Lymphocytes % 16.4 Monocytes % 15.9 H Eosinophils % 1.0 Basophils % 0.5 Absolute Neutrophils 5.3 Absolute Lymphocytes 1.3 Absolute Monocytes 1.3 Absolute Eosinophils 0.1 Absolute Basophils 0.0 Sodium Potassium Chloride Carbon Dioxide Anion Gap BUN Creatinine Est GFR ( Amer) Est GFR (Non-Af Amer) Glucose Calcium Impressions: Upper Extremity CT 08/22/18 00:00 IMPRESSION: No acute findings. Significant limitations as described. Consider repeat or surveillance examination as warranted. Assessment & Plan - Time Time Spent with patient: 15-24 minutes - Inpatient Certification Medical Necessity: Need for IV Antibiotics - Plan Summary Plan Summary: Continue IV antibiotics 24 hrs Discharge tomorrow if arm swelling improves
[2018-08-23] MEDS: OXYCODONE-ACETAMINOPHEN 5-325 MG TABLET PO PRN (20:16)
[2018-08-24] MEDS: VANCOMYCIN HCL 1,000 MG in DEXTROSE 5%-WATER 250 ML IV SCH ×2 (03:07→09:31)
[2018-08-24] MEDS: PIPERACILLIN SODIUM/TAZOBACTAM 3.375 GM in NORMAL SALINE 100 ML IV SCH ×2 (03:07→09:31)
[2018-08-24] MEDS: OXYCODONE-ACETAMINOPHEN 5-325 MG TABLET PO PRN ×2 (04:23)
[2018-08-24] MEDS: KETOROLAC TROMETHAMINE INJ/PF 30 MG/1 ML SDV IV SCH (05:04)
[2018-08-24 07:23] VITALS: BP 114/71
== END 2018-08-24 09:35 | disposition home health service (06) ==
LOC: ER 19:41 → EH 08-22 02:13 → 4N 08-22 05:04
PROVIDERS: ATTEND Surgery
PROC: 0K980ZZ Drainage of Left Upper Arm Muscle, Open Approach (ICD-10-PCS; principal; 2018-08-22 09:15)
DX: M60.022 Infective myositis, left upper arm (principal); G89.29 Other chronic pain; M54.9 Dorsalgia, unspecified; F17.210 Nicotine dependence, cigarettes, uncomplicated; Z79.899 Other long term (current) drug therapy
CPT/HCPCS: 23930; 99284; 96375; 96365; 96367; 36415 ×2; 87070; 87205; 85025 ×2; 87075; 87077; 80048 ×2; 87186; 80307; 80202; 73201; G0378 ×4; A6266; J2250; J3010; J3490; J1885 ×3; J2270 ×2; A9270 ×3; J2405; J7060 ×4; J7121; J7050 ×3; J2704; J3370 ×3; J0696; J2543 ×3; 00400

== ENCOUNTER 2019-03-15 22:11 | Emergency (ER) | payer MEDICARE, MEDICAID ==
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
[2019-03-16] MEDS ORDERED: ONDANSETRON 4 MG TAB.RAPDIS PO ONE (06:21)
[2019-03-16] MEDS ORDERED: IBUPROFEN 600 MG TABLET PO ONE (06:55)
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
[2019-03-16 07:11] VITALS: BP 119/60
== END 2019-03-16 07:12 | disposition home or self-care (01) ==
LOC: ER 22:11
DX: S06.0X1A Concussion with loss of consciousness of 30 minutes or less, initial encounter (principal); S00.81XA Abrasion of other part of head, initial encounter; R11.0 Nausea; Y00.XXXA Assault by blunt object, initial encounter; F17.200 Nicotine dependence, unspecified, uncomplicated; Z88.6 Allergy status to analgesic agent
CPT/HCPCS: 99284; 70450; A9270 ×2; S0119

== ENCOUNTER → 2019-12-29 | Outpatient (CLI) | payer MEDICAID ==
--- NOTE | 2019-12-29 15:25 | RADIOLOGY REPORT (SQ) ---
EXAM DESCRIPTION: TOE RIGHT IMAGES COMPLETED DATE/TIME: 12/29/2019 1:09 pm REASON FOR STUDY: (M10.9)GOUT, UNSPECIFIED M10.9 GOUT, UNSPECIFIED COMPARISON: None. NUMBER OF VIEWS: Three views. TECHNIQUE: AP, lateral, and oblique images acquired of the right first toe. LIMITATIONS: None. FINDINGS: MINERALIZATION: Normal. BONES: No acute fracture or dislocation. No worrisome bone lesions. JOINTS: No evidence of erosions. No effusions. SOFT TISSUES: No soft tissue swelling. No foreign body. OTHER: No other significant finding. IMPRESSION: 1. No acute osseous findings. COMMENT: SITE OF TRAUMA/COMPLAINT MARKED/STAMP COMPLETED: YES. TECHNICAL DOCUMENTATION: JOB ID: [id number] 2010 [employer]- All Rights Reserved Reading location - IP/workstation name: [email or web address]
== END ==
LOC: RAD 12:36
PROVIDERS: ATTEND Nurse Practitioner Primary Care
DX: M79.674 Pain in right toe(s) (principal); M10.9 Gout, unspecified

== ENCOUNTER → 2020-01-12 | Outpatient (CLI) | payer MEDICAID ==
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
== END ==
LOC: RAD 14:40
PROVIDERS: ATTEND Nurse Practitioner Primary Care
DX: M79.672 Pain in left foot (principal); M79.604 Pain in right leg